=== PATIENT | male | born 1950 | race Caucasian/White ===

== ENCOUNTER → 2022-08-23 11:41 | Outpatient (CLI) | payer MEDICARE, OTHER, SELFPAY ==
--- NOTE | 2022-08-23 | DI.RAD.S_ITS ---
PROCEDURE: [place] SHOULDER INJECTION MR/CT LT INDICATIONS: LEFT ROTATOR CUFF TEAR OR RUPTURE COMPARISON: [facility], MR, MR SHOULDER LT W CON, 08/23/2022, 13:20. TECHNIQUE: The indications, alternatives, benefits, risks, and complications of the procedure were explained to the patient. Written informed consent was obtained and placed in the chart. The shoulder was examined fluoroscopically and a site for needle placement chosen for entry into the glenohumeral joint from an anterior approach. The skin was prepped and draped in a sterile fashion, and 1% lidocaine infiltrated from skin down to joint capsule. A spinal needle was inserted into the glenohumeral joint, and a small amount of iodinated contrast media injected to confirm intra-articular placement of the needle tip. This was followed by approximately 12 mL dilute solution of a gadolinium containing MR contrast agent. The needle was removed and a dressing was applied. The patient was given postprocedural instructions and sent to the MR suite for MR imaging. FINDINGS: A single fluoroscopic spot image demonstrates intra-articular location of injected iodinated contrast. IMPRESSION: Successful fluoroscopically guided administration of dilute Gadolinium solution into the shoulder joint for MR arthrogram. Dictated by: Ezio Jerry M.D. on 08/23/2022 at 16:39 Approved by: Ezio Jerry M.D. on 08/23/2022 at 16:41
--- NOTE | 2022-08-23 11:47 | DI.MRI.S_ITS ---
PROCEDURE: MR CERVICAL SPINE WO/W CON INDICATIONS: CERVICAL SPUR TECHNIQUE: Noncontrast sagittal T1 spin echo and T2 fast spin echo, sagittal STIR, foraminal oblique sagittal T2 fast spin echo, axial gradient echo or T2 fast spin echo through the cervical spine. After the administration of contrast, axial and sagittal T1 spin echo with fat saturation through the cervical spine. COMPARISON: [facility], , [place] SHOULDER INJECTION MR/CT LT, 08/23/2022, 13:06. FINDINGS: Image quality: Excellent. Alignment and curvature: There is normal bony alignment. Marrow: Marrow is normal in overall signal, without suspicious enhancement. Spinal cord: Visualized spinal cord has normal size and signal. No cerebellar tonsillar herniation. No abnormal intramedullary enhancement. Paraspinous soft tissues: No paravertebral masses or suspicious enhancement. C2-3: No significant disc bulge. There is bilateral uncovertebral hypertrophy causing moderate bilateral foraminal stenosis. The central canal is patent. C3-4: No significant disc bulge. There is bilateral uncovertebral hypertrophy causing mild right and severe left foraminal stenosis. The central canal is patent. C4-5: No significant disc bulge. There is bilateral uncovertebral hypertrophy causing mild bilateral foraminal stenosis. The central canal is patent. C5-6: Mild diffuse disc bulge. Uncovertebral hypertrophy and disc osteophytes cause moderate right and mild left foraminal stenosis and moderate central canal stenosis. C6-7: No significant disc bulge. Uncovertebral hypertrophy causes mild right and moderate left foraminal stenosis. The central canal is patent. C7-T1: No significant disc bulge. The foramina and central canal are patent. IMPRESSION: 1. Mild diffuse disc bulge at C5-6 causing moderate central canal stenosis. 2. Uncovertebral hypertrophy at multiple levels causes foraminal stenosis as detailed above. 3. No focal protrusion or extrusion. 4. No abnormal cord signal. No abnormal enhancement. Dictated by: Ezio Jerry M.D. on 08/23/2022 at 13:49 Approved by: Ezio Jerry M.D. on 08/23/2022 at 14:00
--- NOTE | 2022-08-23 11:47 | DI.MRI.S_ITS ---
PROCEDURE: MR SHOULDER LT W CON INDICATIONS: LEFT ROTATOR CUFF TEAR OR RUPTURE TECHNIQUE: After the administration of 12 mL of dilute intra-articular Gadolinium contrast, oblique coronal T1 and T2 spin echo with fat saturation, oblique sagittal T1 spin echo with and without fat saturation, oblique sagittal T2 fast spin echo with fat saturation, axial T1 spin echo with fat saturation through the shoulder. COMPARISON: [facility], , [place] SHOULDER INJECTION MR/CT LT, 08/23/2022, 13:06. FINDINGS: Image quality: Excellent. Rotator cuff: There is marked heterogeneity of the supraspinatus tendon with high-grade bursal surface tearing at the anterior footprint measuring approximately 7 mm in anterior-posterior dimension and suspected full-thickness component anteriorly. There appears to be delamination and proximal retraction of bursal sided fibers by up to 2.8 cm. [id number] fluid is seen tracking medially along the supraspinatus tendon. There is mild infraspinatus tendinosis. Teres minor tendon is intact. The subscapularis tendon demonstrates mild tendinosis. No significant rotator cuff muscle atrophy. Bones and bursae: No acute trabecular bone injury or fracture. Chronic traction cystic changes are seen at the posterosuperior humeral head and greater tuberosity near the rotator cuff tendon insertions. No focal glenohumeral cartilage defect. Moderate degenerative changes are seen at the acromioclavicular joint with marginal osteophyte formation and mild subchondral cystic changes. There is a moderate amount of subacromial/subdeltoid bursal fluid, which communicates with the glenohumeral joint space. Heterogeneous material within the subacromial/subdeltoid bursa may represent blood products or bursitis. Capsule and soft tissues: There is nondisplaced tearing of the superior to posterosuperior labrum with uptake of intra-articular contrast material, which may be chronic. The biceps long head tendon demonstrates mild tendinosis. The glenohumeral ligaments appear to be intact. IMPRESSION: 1. At least high-grade partial bursal sided tearing of the supraspinatus tendon with probable full-thickness component at the anterior footprint. There is delamination and proximal retraction of bursal sided fibers by up to 2.8 cm. [id number] fluid is seen tracking medially along the supraspinatus tendon to the myotendinous junction. 2. Mild infraspinatus and subscapularis tendinosis. 3. Mild tendinosis of the proximal biceps long head tendon. 4. Nondisplaced tearing of the superior to posterosuperior labrum, which may be chronic. 5. Moderate acromioclavicular joint osteoarthrosis. 6. Moderate subacromial/subdeltoid bursal effusion, which fills with [id number] contrast material indicating communication with the glenohumeral joint space. Heterogeneous material within the bursa may represent small amount of blood products or bursitis. Dictated by: Manuelito Pittman M.D. on 08/24/2022 at 10:46 Approved by: Manuelito Pittman M.D. on 08/24/2022 at 11:04
== END ==
PROVIDERS: PCP Internal Medicine; Referring Provider Physician Assistant Surgical; Visit Provider Physician Assistant Surgical
DX: M19.012 Primary osteoarthritis, left shoulder (principal); M75.122 Complete rotator cuff tear or rupture of left shoulder, not specified as traumatic; S43.492A Other sprain of left shoulder joint, initial encounter; M25.412 Effusion, left shoulder; M50.322 Other cervical disc degeneration at C5-C6 level; M48.02 Spinal stenosis, cervical region; R20.0 Anesthesia of skin; R20.2 Paresthesia of skin
CPT/HCPCS: 23350; 72156; 73222